=== PATIENT | female | born 1975 | race Caucasian/White ===

== ENCOUNTER 2017-03-01 11:14 | Emergency (ER) | payer MEDICAID ==
[~2017-03-01] VITALS: Ht 149.9 cm; Wt 56.7 kg
[~2017-03-01 11:14] MED LIST: APAP/OXYCODONE1 TA1 PO; ATIVAN GENERIC0.5 MG PO; CIPROFLOXACIN500 M2 PO; CYMBALTA30 MG PO; KEFLEX500 M1 PO; LEVOTHYROXIN0.025 M1 PO; LISINOPRIL/HCTZ1 TA3 PO; MEDROL 4MG. DOSE4 MG PO; PERCOCET 5/3251 EACH PO; PERCOCET1 TAB PO; PHENERGAN 25MG.25 M1 PO; TIZANIDINE HCL 44 MG PO
[2017-03-01 11:41] LABS: HEMOGLOBIN 12.4 g/dL (12.2-16.2); LYMPH # 2.2 K/mm3 (0.7-4.5); LYMPH % 22.7 % (10-50.0)
[2017-03-01 12:05] LABS: BUN 10 mg/dL (7-18)
--- NOTE | 2017-03-01 12:05 | Emergency Room Report ---
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 N Clinical Suspician of Infection? N Mental Status: 1 - Regular (Normal Baseline) Sepsis Risk:Low Sepsis Risk Have you (or family members/close friends) recently traveled outside the [place]? N If Yes, where/when: Have you had exposure to infectious disease within the past month? TB? Other? Specify: 41 years old white female with history of severe degenerative disc disease and fibromyalgia. Her roof leaked 2 weeks ago and she found black male. She started developing generalized body ache, 2 days ago she developed chest pressure, yesterday she started vomiting. She doesn't feel well. Source patient, RN notes reviewed Exam Limitations no limitations ALLERGIES Coded Allergies: codeine (Severe, D-HLBESK-GOAR/THROAT 03/01/17) morphine (Severe, L-KSJQVD-RRWO/THROAT 03/01/17) Home Medications Active Scripts OXYCODONE 5MG/[id number] (Oxycodone-Acetaminophen 5-325) 1 TAB PO TIDP PRN Pain #9 TAB Prov: 06/19/15 Reported Medications Lorazepam (Ativan) 2 TAB PO BID #45 Lisinopril & Hctz (Lisinopril-Hctz 10-12.5 MG Tab) 1 TAB PO DAILY #30 Levothyroxine Sodium (Levothyroxine 0.025MG) 0.025 MG PO DAILY #30 TIZANIDINE HCL (Tizanidine Hcl 4 Mg Tablet) 4 MG PO TID #90 DULOXETINE HCL (Cymbalta 30MG) 30 MG PO DAILY MISCELLANEOUS (UNKNOWN MEDICATION) (Unknown Dose) PO DAILY History Medical History General CAD? No Angina: No DE: No Hypertension? Yes Hyperlipidemia? No CHF? No DVT? No PE? No COPD? No Asthma? No Anemia? No GERD? No Gastric ulcers? No GI Bleed? No Hernia? No Thyroid Problems? Yes Hypothyroidism? Yes CVA? No Seizures? No Diabetes? No Insulin Dependent: No Insulin Pump: No Home FSBS? No Renal Insuffiency? No End Stage Renal Disease? No UTI? Yes Stones? Yes BPH? No GB Disease: No Nephritic Syndrome? No Asplenia? No Hepatitis? No Sickle Cell Disease? No Arthritis? Yes Migraines? No Cataracts? No Glaucoma? No MRSA? No HIV? No TB? No Anxiety? Yes Depression? Yes Cancer? No More? 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 Respiratory no symptoms reported Cardiovascular see HPI, chest pain (CHEST PRESSURE FOR 2 DAYS) Gastrointestinal see HPI, vomiting Genitourinary no symptoms reported. Musculoskeletal see HPI, muscle pain Skin no symptoms reported Psychiatric/Neurological no symptoms reported Physical Exam Vital Signs Vital Signs Date Time Temp Pulse Resp B/P Pulse O2 O2 Flow FiO2 Ox Delivery Rate 03/01 1345 18 03/01 1233 18 03/01 1115 98.2 96 18 137/89 99 - WBC >12,000 or <4,000 or 10% bands? 2 or more SIRS Criteria Met? B/P:137/89 MAP:105 Creatinine >2.0? UA output<0.5ml/kg/hr for 2 hrs? Platelet count >100,000? Lactate >2.0mmol/1? INR >1.2 or PTT > than 60 sec? Evidence of Organ Dysfunction? Provider documented clinical suspician of infection? N Sepsis Criteria Count: 1 Sepsis Risk: Low Sepsis Risk General Appearance normal appearance, WD/WN, no apparent distress, LOOKS ANXIOUS Eye Exam - bilateral eye normal exam, bilateral eye PERRL, bilateral eye EOMI Ear, Nose, Throat hearing grossly normal, normal ENT inspection Neck normal inspection, non-tender, supple, full range of motion, NO MENINGEAL SIGNS Respiratory Status Yes: trachea midline, chest symmetrical, non tender chest. No: respiratory distress. Lung Sounds bilateral: normal breath sounds, lungs clear. 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 SHE HAS NO MENINGEAL SIGNS ABLE TO FLEX THE NECK TO THE CHEST AND BEND BOTH KNEES TO THE CHEST. nEGATIVE kERNIG'S AND bRUDZINSKI'S SIGN Reflexes Reflexes normal Yes Mental status normal mood/affect Skin intact, normal color, warm/dry Medical Decision Making LABS/Meds/Orders Pt receiving controlled substance in ED? No Results/Orders Laboratory Tests 03/01/17 1441: Troponin I < 0.02 03/01/17 1404: ABG pH 7.47 H, ABG pCO2 (Temp Corrct 33.6 L, ABG pO2 (Temp Correct 90.4, ABG HCO3 24.0, ABG Total CO2 25.0, ABG O2 Sat (Calculated) 97.3, ABG Base Excess 0.4 , Paco Test ACCEPTABLE, Blood Gas Comments RIGHT RADIAL 03/01/17 1220: Urine Color YELLOW, Urine Appearance SL CLOUDY, Urine pH 7.5, Ur Specific [place] 1.015, Urine Protein NEGATIVE, Urine Ketones NEGATIVE, Urine Blood TRACE -INTACT, Urine Nitrate NEGATIVE, Urine Bilirubin NEGATIVE, Urine Urobilinogen 0.2, Ur Leukocyte Esterase NEGATIVE, Urine RBC OCC, Urine WBC OCC, Ur Squamous Epith Cells 3-5, Urine Bacteria TRACE, Urine Mucus 2+, Urine Glucose NEGATIVE 03/01/17 1120: ESR 7 03/01/17 1120: Sodium 137, Potassium 3.2 L, Chloride 101, Carbon Dioxide 25, BUN 10, Creatinine 0.6, Estimated Creat Clear 111, Estimated GFR (MDRD) 111, Glucose 128 H, Calcium 9.2, Total Bilirubin 0.8, AST 8 L, ALT 18, Alkaline Phosphatase 77, Creatine Kinase 81, CK-MB (CK-2) Rel Index 0.6, CK and CKMB Interp < 0.5, Troponin I < 0.02, Total Protein 7.5, Albumin 3.9, Globulin 3.6 H, Albumin/ Globulin Ratio 1.1, Amylase 66, Lipase 159, D-Dimer < 100, WBC 9.8, RBC 4.78, Hgb 12.4, Hct 37.5, MCV 78.4 L, RDW 13.3, Plt Count 414, MPV 7.7, Gran % 65.4, Gran # 6.4, Lymphocytes % 22.7, Monocytes % 6.9, Eosinophils % 4.0, Basophils % 0.9, Lymphocytes # 2.2, Monocytes # 0.7, Eosinophils # 0.4, Basophils # 0.1, PUBS MCHC 33.2, MCH 26.0 L, Influenza Type A Ag NOT DETECTED, Influenza Type B Ag NOT DETECTED Current Medication Orders Sig/Lamont Start time Last Medication Dose Route Stop Time Status Admin Potassium Chloride 0 .STK-MED ONE 03/01 1342 DC PO Hydromorphone HCl 0 .STK-MED ONE 03/01 134 DCr .ROUTE Hydromorphone HCl 1 MG ONCE ONE 03/01 1300 DCr 03/01 IV 03/01 1301 1345 Potassium Chloride 40 MEQ ONCE ONE 03/01 1300 DC 03/01 PO 03/01 1301 1344 Famotidine 0 .STK-MED ONE 03/01 1216 DC IV Famotidine 20 MG ONCE ONE 03/01 1215 DC 03/01 IV 03/01 1216 1228 Ketorolac 30 MG ONCE ONE 03/01 1215 DC 03/01 Tromethamine IV 03/01 121 1233 Ondansetron HCl 4 MG ONCE ONE 03/01 1215 DC 03/01 IV 03/01 1216 1228 Sodium Chloride 1,000 ML .Q1H1M 03/01 1215 DC 03/01 IV 03/01 1315 1217 Sodium Chloride 10 ML PRN PRN 03/01 1215 AC IV 03/02 1206 Sodium Chloride 8 ML ONCE ONE 03/01 1215 DC IV 03/01 1216 Famotidine 0 .STK-MED ONE 03/01 1214 DC .ROUTE Ketorolac 0 .STK-MED ONE 03/01 1214 DC Tromethamine .ROUTE Ondansetron HCl 0 .STK-MED ONE 03/01 1214 DC .ROUTE Sodium Chloride 1,000 ML .STK-MED ONE 03/01 1207 DC IV Sodium Chloride 10 ML PRN PRN 03/01 1130 AC IV 03/02 1118 Orders Procedure Date/time Status DIET-NOTHING BY MOUTH 03/01 D Active TROPONIN I 03/01 1430 Complete ARTERIAL BLOOD GAS REQUEST 03/01 1254 Active SED RATE 03/[address] HEAD REQ 03/01 1207 Complete ELECTROCARDIOGRAM REQUEST 03/01 1119 Active CHEST(2 VIEWS-NOT PORTABLE) 03/01 1119 Active IV SALINE LOCK 03/01 111 Active URINALYSIS/COMPLETE 03/01 111 Complete LIPASE 03/01 111 Complete INFLUENZA A&B ANTIGENS 03/01 111 Complete D-DIMER 03/01 111 Complete CBC WITH AUTO DIFF 03/01 111 Complete CARDIAC ENZYMES 03/01 111 Complete CHEM 12 PROFILE 03/01 111 Complete AMYLASE 03/01 111 Complete 12 LEAD EKG-AALIYAH (INITIAL) 03/01 UNK Active CM/EKG CM/EKG EKG rate, NSR, rhythm, no evid. of ischemic chgs, no ectopy XRAY/CT/US XRAY/CT/US XRAY chest XR interpretation by reviewed by me Xray Results normal/NAD, no infiltrates CT head CT interpretation by reviewed by me Time results known: 1344 CT Results normal/NAD US Interpretation by reviewed by me Departure Departure Time of Disposition 1425 Disposition DC Home or Self Care(routine) Clinical Impression Primary Impression: Fibromyalgia Secondary Impressions: Acute sinusitis, Atypical chest pain, Chronic pain syndrome Condition STABLE Referrals [facility], Barry Additional Instructions I DISCUSSED WITH THE PATIENT ABOUT HER NORMAL LAB WHEN SHE STARTED OF COMPLAINING OF CHEST PAIN AND WAS CONCERNED OF CARDIAC ETIOLOGY. I DISCUSSED WITH DR JENSEN WHO RECOMMENDED NO ADMISSION , REPEAT TROPONIN. DE was ruled out by negative EKG and two negative troponin, I discussed her with Dr aHnd who will see her 9 am tomorrow in the office. She was positive sinusitis will start her on amoxicllin and follow up with Dr Eckert. Prior to DC the patietn asked me for anxiety medications Discharge Counseling Counseled pt/family regarding diagnosis, test results, medications/RX, follow up needs Prescriptions Current Visit Scripts Amoxicillin (Amoxicillin 500MG) 500 MG PO Q8 #30 CAP IBUPROFEN (Motrin 600MG) 600 MG PO Q6HP PRN pain #20 TAB ED Critical Care Critical Care No If Critical Care minutes are documented, the time involved in the performance of seperately reportable procedures was not counted toward critical care time documented. I directly delivered medical care to this critically ill and/or injured patient. Timely evaluation and treatment was necessary to address the significant organ system(s) dysfunction present in this patient. at [id number]
--- NOTE | 2017-03-01 12:05 | Emergency Room Report ---
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 N Clinical Suspician of Infection? N Mental Status: 1 - Regular (Normal Baseline) Sepsis Risk:Low Sepsis Risk Have you (or family members/close friends) recently traveled outside the [place]? N If Yes, where/when: Have you had exposure to infectious disease within the past month? TB? Other? Specify: 41 years old white female with history of severe degenerative disc disease and fibromyalgia. Her roof leaked 2 weeks ago and she found black male. She started developing generalized body ache, 2 days ago she developed chest pressure, yesterday she started vomiting. She doesn't feel well. Source patient, RN notes reviewed Exam Limitations no limitations ALLERGIES Coded Allergies: codeine (Severe, F-[id number]/THROAT 03/01/17) morphine (Severe, N-[id number]-SLXH/THROAT 03/01/17) Home Medications Active Scripts OXYCODONE 5MG/[id number] (Oxycodone-Acetaminophen 5-325) 1 TAB PO TIDP PRN Pain #9 TAB Prov: 06/19/15 Reported Medications Lorazepam (Ativan) 2 TAB PO BID #45 Lisinopril & Hctz (Lisinopril-Hctz 10-12.5 MG Tab) 1 TAB PO DAILY #30 Levothyroxine Sodium (Levothyroxine 0.025MG) 0.025 MG PO DAILY #30 TIZANIDINE HCL (Tizanidine Hcl 4 Mg Tablet) 4 MG PO TID #90 DULOXETINE HCL (Cymbalta 30MG) 30 MG PO DAILY MISCELLANEOUS (UNKNOWN MEDICATION) (Unknown Dose) PO DAILY History Medical History General CAD? No Angina: No ME: No Hypertension? Yes Hyperlipidemia? No CHF? No DVT? No PE? No COPD? No Asthma? No Anemia? No GERD? No Gastric ulcers? No GI Bleed? No Hernia? No Thyroid Problems? Yes Hypothyroidism? Yes CVA? No Seizures? No Diabetes? No Insulin Dependent: No Insulin Pump: No Home FSBS? No Renal Insuffiency? No End Stage Renal Disease? No UTI? Yes Stones? Yes BPH? No GB Disease: No Nephritic Syndrome? No Asplenia? No Hepatitis? No Sickle Cell Disease? No Arthritis? Yes Migraines? No Cataracts? No Glaucoma? No MRSA? No HIV? No TB? No Anxiety? Yes Depression? Yes Cancer? No More? 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 Respiratory no symptoms reported Cardiovascular see HPI, chest pain (CHEST PRESSURE FOR 2 DAYS) Gastrointestinal see HPI, vomiting Genitourinary no symptoms reported. Musculoskeletal see HPI, muscle pain Skin no symptoms reported Psychiatric/Neurological no symptoms reported Physical Exam Vital Signs Vital Signs Date Time Temp Pulse Resp B/P Pulse O2 O2 Flow FiO2 Ox Delivery Rate 03/01 1345 18 03/01 1233 18 03/01 1115 98.2 96 18 137/89 99 - WBC >12,000 or <4,000 or 10% bands? 2 or more SIRS Criteria Met? B/P:137/89 MAP:105 Creatinine >2.0? UA output<0.5ml/kg/hr for 2 hrs? Platelet count >100,000? Lactate >2.0mmol/1? INR >1.2 or PTT > than 60 sec? Evidence of Organ Dysfunction? Provider documented clinical suspician of infection? N Sepsis Criteria Count: 1 Sepsis Risk: Low Sepsis Risk General Appearance normal appearance, WD/WN, no apparent distress, LOOKS ANXIOUS Eye Exam - bilateral eye normal exam, bilateral eye PERRL, bilateral eye EOMI Ear, Nose, Throat hearing grossly normal, normal ENT inspection Neck normal inspection, non-tender, supple, full range of motion, NO MENINGEAL SIGNS Respiratory Status Yes: trachea midline, chest symmetrical, non tender chest. No: respiratory distress. Lung Sounds bilateral: normal breath sounds, lungs clear. 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 SHE HAS NO MENINGEAL SIGNS ABLE TO FLEX THE NECK TO THE CHEST AND BEND BOTH KNEES TO THE CHEST. nEGATIVE kERNIG'S AND bRUDZINSKI'S SIGN Reflexes Reflexes normal Yes Mental status normal mood/affect Skin intact, normal color, warm/dry Medical Decision Making LABS/Meds/Orders Pt receiving controlled substance in ED? No Results/Orders Laboratory Tests 03/01/17 1441: Troponin I < 0.02 03/01/17 1404: ABG pH 7.47 H, ABG pCO2 (Temp Corrct 33.6 L, ABG pO2 (Temp Correct 90.4, ABG HCO3 24.0, ABG Total CO2 25.0, ABG O2 Sat (Calculated) 97.3, ABG Base Excess 0.4 , Paco Test ACCEPTABLE, Blood Gas Comments RIGHT RADIAL 03/01/17 1220: Urine Color YELLOW, Urine Appearance SL CLOUDY, Urine pH 7.5, Ur Specific [place] 1.015, Urine Protein NEGATIVE, Urine Ketones NEGATIVE, Urine Blood TRACE -INTACT, Urine Nitrate NEGATIVE, Urine Bilirubin NEGATIVE, Urine Urobilinogen 0.2, Ur Leukocyte Esterase NEGATIVE, Urine RBC OCC, Urine WBC OCC, Ur Squamous Epith Cells 3-5, Urine Bacteria TRACE, Urine Mucus 2+, Urine Glucose NEGATIVE 03/01/17 1120: ESR 7 03/01/17 1120: Sodium 137, Potassium 3.2 L, Chloride 101, Carbon Dioxide 25, BUN 10, Creatinine 0.6, Estimated Creat Clear 111, Estimated GFR (MDRD) 111, Glucose 128 H, Calcium 9.2, Total Bilirubin 0.8, AST 8 L, ALT 18, Alkaline Phosphatase 77, Creatine Kinase 81, CK-MB (CK-2) Rel Index 0.6, CK and CKMB Interp < 0.5, Troponin I < 0.02, Total Protein 7.5, Albumin 3.9, Globulin 3.6 H, Albumin/ Globulin Ratio 1.1, Amylase 66, Lipase 159, D-Dimer < 100, WBC 9.8, RBC 4.78, Hgb 12.4, Hct 37.5, MCV 78.4 L, RDW 13.3, Plt Count 414, MPV 7.7, Gran % 65.4, Gran # 6.4, Lymphocytes % 22.7, Monocytes % 6.9, Eosinophils % 4.0, Basophils % 0.9, Lymphocytes # 2.2, Monocytes # 0.7, Eosinophils # 0.4, Basophils # 0.1, PUBS MCHC 33.2, MCH 26.0 L, Influenza Type A Ag NOT DETECTED, Influenza Type B Ag NOT DETECTED Current Medication Orders Sig/Lamont Start time Last Medication Dose Route Stop Time Status Admin Potassium Chloride 0 .STK-MED ONE 03/01 1342 DC PO Hydromorphone HCl 0 .STK-MED ONE 03/01 134 DCr .ROUTE Hydromorphone HCl 1 MG ONCE ONE 03/01 1300 DCr 03/01 IV 03/01 1301 1345 Potassium Chloride 40 MEQ ONCE ONE 03/01 1300 DC 03/01 PO 03/01 1301 1344 Famotidine 0 .STK-MED ONE 03/01 1216 DC IV Famotidine 20 MG ONCE ONE 03/01 1215 DC 03/01 IV 03/01 1216 1228 Ketorolac 30 MG ONCE ONE 03/01 1215 DC 03/01 Tromethamine IV 03/01 121 1233 Ondansetron HCl 4 MG ONCE ONE 03/01 1215 DC 03/01 IV 03/01 1216 1228 Sodium Chloride 1,000 ML .Q1H1M 03/01 1215 DC 03/01 IV 03/01 1315 1217 Sodium Chloride 10 ML PRN PRN 03/01 1215 AC IV 03/02 1206 Sodium Chloride 8 ML ONCE ONE 03/01 1215 DC IV 03/01 1216 Famotidine 0 .STK-MED ONE 03/01 1214 DC .ROUTE Ketorolac 0 .STK-MED ONE 03/01 1214 DC Tromethamine .ROUTE Ondansetron HCl 0 .STK-MED ONE 03/01 1214 DC .ROUTE Sodium Chloride 1,000 ML .STK-MED ONE 03/01 1207 DC IV Sodium Chloride 10 ML PRN PRN 03/01 1130 AC IV 03/02 1118 Orders Procedure Date/time Status DIET-NOTHING BY MOUTH 03/01 D Active TROPONIN I 03/01 1430 Complete ARTERIAL BLOOD GAS REQUEST 03/01 1254 Active SED RATE 03/[address] HEAD REQ 03/01 1207 Complete ELECTROCARDIOGRAM REQUEST 03/01 1119 Active CHEST(2 VIEWS-NOT PORTABLE) 03/01 1119 Active IV SALINE LOCK 03/01 111 Active URINALYSIS/COMPLETE 03/01 111 Complete LIPASE 03/01 111 Complete INFLUENZA A&B ANTIGENS 03/01 111 Complete D-DIMER 03/01 111 Complete CBC WITH AUTO DIFF 03/01 111 Complete CARDIAC ENZYMES 03/01 111 Complete CHEM 12 PROFILE 03/01 111 Complete AMYLASE 03/01 111 Complete 12 LEAD EKG-AALIYAH (INITIAL) 03/01 UNK Active CM/EKG CM/EKG EKG rate, NSR, rhythm, no evid. of ischemic chgs, no ectopy XRAY/CT/US XRAY/CT/US XRAY chest XR interpretation by reviewed by me Xray Results normal/NAD, no infiltrates CT head CT interpretation by reviewed by me Time results known: 1344 CT Results normal/NAD US Interpretation by reviewed by me Departure Departure Time of Disposition 1425 Disposition DC Home or Self Care(routine) Clinical Impression Primary Impression: Fibromyalgia Secondary Impressions: Acute sinusitis, Atypical chest pain, Chronic pain syndrome Condition STABLE Referrals [facility], Barry Additional Instructions I DISCUSSED WITH THE PATIENT ABOUT HER NORMAL LAB WHEN SHE STARTED OF COMPLAINING OF CHEST PAIN AND WAS CONCERNED OF CARDIAC ETIOLOGY. I DISCUSSED WITH DR JENSEN WHO RECOMMENDED NO ADMISSION , REPEAT TROPONIN. ME was ruled out by negative EKG and two negative troponin, I discussed her with Dr Hand who will see her 9 am tomorrow in the office. She was positive sinusitis will start her on amoxicllin and follow up with Dr Eckert. Prior to DC the patietn asked me for anxiety medications Discharge Counseling Counseled pt/family regarding diagnosis, test results, medications/RX, follow up needs Prescriptions Current Visit Scripts Amoxicillin (Amoxicillin 500MG) 500 MG PO Q8 #30 CAP IBUPROFEN (Motrin 600MG) 600 MG PO Q6HP PRN pain #20 TAB ED Critical Care Critical Care No If Critical Care minutes are documented, the time involved in the performance of seperately reportable procedures was not counted toward critical care time documented. I directly delivered medical care to this critically ill and/or injured patient. Timely evaluation and treatment was necessary to address the significant organ system(s) dysfunction present in this patient. at [id number]
[2017-03-01 12:09] LABS: GFR (ESTIMATED) 111 ML/MIN (59-)
[2017-03-01 12:27] LABS: URINE BILIRUBIN - DIPSTICK NEGATIVE (NEG); URINE BLOOD TRACE-INTACT (NEG)
[2017-03-01 13:09] LABS: ARTERIAL ABE 0.4 MMOL/L (-2.4-+2.3); ARTERIAL PO2 90.4 MMHG (80-100)
[2017-03-01 13:10] LABS: ALLEN'S TEST ACCEPTABLE
--- OUTSIDE RECORDS SUMMARY | 2017-03-01 13:38 | External Medical Summary Rpt | CCD ---
Author Author , LEONIDES Organization LEONIDES Address Unknown Phone [email or web address] Support Name Relationship Address Phone KARYN, Next Of Kin Unknown Unavailable RODO Immunization Name Date Rout CVX Reac Dose Comm Prov Is Faci e tion ent ider Refu lity Give sed n Infl 09-0 140 0.5 Hist [facility] No [facility] uenz 6-20 mL oric ART5 ART5 a, 17 al 91 91 P-Fr Info ee rmat ion - Sour ce Unsp ecif ied Hep 03-1 43 999 Hist H196 No H196 B, 2-20 oric adul 15 al t Info rmat ion - Sour ce Unsp ecif ied Infl 09-2 999 Hist DC No DC uenz 5-20 oric a 14 al Quad Info rmat W/Pr ion es - Sour ce Unsp ecif ied Hep 08-0 Intr 43 999 Hist H196 No H196 B, 7-20 amus oric adul 14 cula al t r Info rmat ion - Sour ce Unsp ecif ied Hep 07-0 Intr 43 999 Hist H196 No H196 B, 8-20 amus oric adul 14 cula al t r Info rmat ion - Sour ce Unsp ecif ied
--- OUTSIDE RECORDS SUMMARY | 2017-03-01 13:38 | External Medical Summary Rpt | CCD ---
Author Author , LEONIDES Organization [employer] Address Unknown Phone [email or web address] Support Name Relationship Address Phone KARYN, Next [...] Unsp ecif ied Infl 09-2 999 Hist [place] No [place] uenz 5-20 oric a 14 al Quad [...]
--- NOTE | 2017-03-01 14:55 | RADIOLOGY REPORT PS360 ---
CT HEAD WITHOUT CONTRAST CT BONE WINDOWS included ORDERING PHYSICIAN : Juice Rosen MD PATIENT AGE: 41 years GENDER: Female PROCEDURE: Routine axial images headwithout contrast. Brain & bone windows HISTORY: CATALAN EXPOSURE TO MOLD headache 1 week COMPARISON: No previous studies FINDINGS: No acute intracranial findings. No hemorrhage. Patient No mass effect or mass lesion. No subdural nor extra-axial collection. Ventricles & basal cisterns appear satisfactory. Summers & white matter patterns satisfactory. The posterior fossa appear satisfactory and unremarkable. The skull unremarkable Mild nonspecific inflammatory changes anterior ethmoid air cells bilateral. Otherwise visualized portions of the paranasal sinuses are clear. . Mastoid air cells, middle ear & IACs are unremarkable. IMPRESSION: No acute intracranial findings. Cerebral hemispheres and posterior fossa appear normal Minimal nonspecific inflammatory changes anterior ethmoid air cells bilateral
[2017-03-01] MEDS ORDERED: AMOXICOT500 MG PO (15:11)
[2017-03-01] MEDS ORDERED: MOTRIN 600MG.600 MG PO (15:13)
[2017-03-01 15:53] VITALS: BP 132/84
--- NOTE | 2017-03-01 17:41 | RADIOLOGY REPORT PS360 ---
CHEST(2 VIEWS-NOT PORTABLE) Ordering physician: Juice Rosen MD Age: 41 years Female INDICATION: coughCP cough exposure to mold chest pain PROCEDURE: CHEST(2 VIEWS-NOT PORTABLE) FINDINGS: Previous chest film January 2008 Lungs well expanded and clear with nothing definitely acute. No pneumothorax. No pleural effusion. A subtle stable 5 mm granuloma is seen at the lateral lower right chest just beneath the anterior sixth rib laterally Heart normal size. Normal pulmonary vascularity. Hilar and mediastinal structures appear satisfactory. Chest wall unremarkable. T-spine intact. IMPRESSION ----- Stable chest . No active disease evident. Lungs clear
== END 2017-03-01 15:55 | disposition home or self-care (01) ==
LOC: ER 11:14
PROVIDERS: Emergency Medicine
DX: M79.7 Fibromyalgia (principal); J01.90 Acute sinusitis, unspecified; R07.89 Other chest pain; F17.210 Nicotine dependence, cigarettes, uncomplicated; F41.8 Other specified anxiety disorders; E03.9 Hypothyroidism, unspecified; I10 Essential (primary) hypertension; Z88.6 Allergy status to analgesic agent
CPT/HCPCS: J2405